=== PATIENT | female | born 1940 | race Caucasian/White ===

== ENCOUNTER 2016-07-03 02:39 | Emergency (ER) | payer MEDICARE ==
[~2016-07-03] VITALS: Ht 167.6 cm; Wt 59.1 kg
[~2016-07-03 02:39] MED LIST: BAYER BACK PO; BODY PO; ERGO400C PO; FISH1200 PO; MVI PO; Turmeric PO; [UNRECOGNIZED DRUG - OTHER]; [UNRECOGNIZED DRUG - OTHER] PO; coQ10; progesterone PO
[2016-07-03 02:46] VITALS: BP 100/64; PULSE 114; RESP 18; O2SAT 99
--- NOTE | 2016-07-03 02:47 | ED.REPORT ---
HPI-Abd Pain F 40 and Over Date of Service Jul 03, 2016 ED Provider: Obed Jiménez MD Pt is a 76 y/o female who presents to the ED complaining of abdominal pain onset 3 days ago with headache, sore throat, cough, nausea, vomiting, diarrhea, and dizziness. Patient has never had influenza vaccination. Nursing Notes Stated Complaint: FLU SYMPTOMS Chief Complaint: Female Abdominal Pain Nursing Notes Reviewed: Yes Allergies: Coded Allergies: Penicillins (Verified Allergy, Severe, rash/hives, 07/03/16) clindamycin (Verified Allergy, Severe, rash/hives, 07/03/16) codeine (Verified Allergy, Severe, rash/hives, 07/03/16) epinephrine (Verified Allergy, Severe, rash/hives, 07/03/16) morphine (Verified Allergy, Severe, rash/hives, 07/03/16) acetaminophen (Verified Allergy, Mild, RASH, 07/03/16) Sulfa (Sulfonamide Antibiotics) (Verified Allergy, Unknown, 07/03/16) Uncoded Allergies: SULFA (Allergy, Severe, rash/hives, 04/17/09) sulfites/nitrates (Allergy, Severe, diarrhea, 03/20/09) Scheduled ([Faith Back/Body]) 500 MG PO PRN ([Turmeric]) 500 MG PO AM ([Stressplex]) PRN ([Tri est comp oils]) 0.25 MG PO AM ([progesterone]) 1 MG PO AM Ergocalciferol-Expunged Drug, Do Not Renew! (Vitamin D-Expunged Drug, Do Not Renew!) 400 Unit Capsule 1,000 UNIT PO AM Fish Oil/Fat No.8/Hrb Comb.137-Expunged, Do N ([place]asper 0-6-9-Expunged, Do Not Renew!) 1,200 Mg Capsule 115 MG PO AM Therapeutic Multivit/Minerals-Expunged Drug, (Therapeutic Multivit/Minerals- Expunged Drug,) 1 Ea Tab 1 TAB PO DAILY Miscellaneous Medications ([coQ10]) General Time Seen by : 02:46 Chief Complaint Abdominal pain, Vomiting mild Hx Obtained From: Patient Arrived By: Walk-in Sudden in Onset?: No Onset Occurred: 3 days ago Symptom Duration: Since onset Progression since Onset: Gradually worsening Location: : Diffuse Quality: Painful Severity: Current: Moderate Severity: Maximum: Moderate Associated with: Reports: Diarrhea, Vomiting Additional Notes: sore throat. Past Medical History Past Surgical History Reports: Hysterectomy Smoking History Former Smoker Social History Alcohol Use: "Social" Drug Use: Denies drug use Other Social History: Good social support, Ambulatory Status Independent Review of Systems Constitutional: Reports: Weakness - generalized, Denies: Chills, Fever Respiratory: Denies: Non-productive cough GI: Reports: Abdominal pain, Diarrhea, Nausea, Vomiting Female: Denies: Urination decreased Complete sys rev & neg: except as marked. Ears / Nose / Throat: Reports: Sore throat Neurologic: Reports: Dizziness, Headache Physical Exam Vital Signs Vital Signs (First) Date Time Temp Pulse Resp B/P Pulse Ox O2 Delivery O2 Flow Rate FiO2 07/03/16 02:46 37.3 114 18 100/64 99 Room Air Initial VS: Reviewed, Vital signs abnormal Extremities: Vascular intact, Neuro intact, No swelling, No tenderness Skin: Warm, Dry, No cyanosis Neurologic: Alert, Oriented, Nonfocal Psychiatric: Mood/affect normal, Behavior normal, Normal thought content General/Constitutional: Awake, Alert, Well developed, Well nourished Appearance / Presentation: Positive: Pale Respiratory / Chest: Atraumatic, Breath sounds NL, Breath sounds = bilat, No respiratory distress Cardiovascular: Heart rate NL, Regular rhythm, Heart sounds NL, Peripheral circulation NL Abdomen: Soft, No guarding, No rebound Tenderness/Guarding/Rebound: Positive: Tender diffuse (mild ) Head / Eyes: Atraumatic, Normocephalic Mouth: Positive: Mucous membranes dry Interpretation & Diagnostics Lab Results Interpretation Result Diagram: 07/03/16 0315 07/03/16 0315 Test 07/03/16 03:15 White Blood Count 6.7th/mm3 (3.8-10.1) Red Blood Count 4.64mil/mm3 (3.90-5.20) Hemoglobin 13.7g/dL (12.0-15.6) Hematocrit 41.2% (35.0-46.0) Mean Corpuscular Volume 88.8fL (81-100) Mean Corpuscular Hemoglobin 29.5pg (27.0-35.0) Mean Corpuscular Hemoglobin Concent 33.3% (32.0-37.0) Red Cell Distribution Width 11.4% (12.3-15.4) Platelet Count 176bil/L (150-400) Neutrophils (%) (Auto) 83.9% (40-74) Lymphocytes (%) (Auto) 9.6% (14-46) Monocytes (%) (Auto) 6.1% (4-12) Eosinophils (%) (Auto) 0% (0-5) Basophils (%) (Auto) 0.3% (0-3) Sodium Level 135mEq/L (134-144) Potassium Level 3.6mEq/L (3.5-5.2) Chloride Level 96mEq/L (97-108) Carbon Dioxide Level 25mmol/L (18-29) Blood Urea Nitrogen 19mg/dL (8-27) Creatinine 0.71mg/dL (0.57-1.00) Estimat Glomerular Filtration Rate 115mL/min (>59) Glucose Level 150mg/dL (60-99) Calcium Level 8.6mg/dL (8.5-10.1) Magnesium Level 2.1mg/dL (1.6-2.6) Total Bilirubin 0.4mg/dL (0.0-1.2) Aspartate Amino Transf (AST/SGOT) 35U/L (0-50) Alanine Aminotransferase (ALT/SGPT) 19U/L (0-32) Alkaline Phosphatase 76U/L (25-165) Total Protein 6.6g/dL (6.4-8.4) Albumin 3.7g/dL (3.4-5.0) Lipase 46U/L (13-60) Hold [place] Top Tube Received (Received) Lab values outside NL range: no clinical significance. Lab Results Interpretation: Influenza A positive Re-Eval/Medical Decision Med Decision/Clinical Course 76-year-old female who is about 3 days into a flulike illness. She is positive for influenza A. She was hydrated and given Zofran. She will be sent home with a Zofran prepack. She was encouraged to have any contacts who are elderly , chronically ill, , or be evaluated by their primary doctors. Re-Evaluation/Progress : Time of Eval: 03:53 Consultation : Note: Diagnosis of influenza A is discussed with patient. Patient understands diagnosis and treatment plan. Counseled Regarding: Diagnosis, Lab results, Need for follow-up, When/why to return to ED Discharge & Departure Primary Impression: Influenza A Disposition: Home Discharge Condition All VS Reviewed: Yes Condition: Stable Patient Instructions: Influenza (ED) Additional Instructions: You have influenza A. You are been sick for a few days so Tamiflu, the antiviral medication, will not be helpful at this point. Stay at home and away from other people until you are well so you do not transmit the illness. Any but he has been exposed to should get the flu shot. Anybody who was exposed to you with chronic illness, , or less than one year of age should talk to their doctor about preventive Tamiflu medication. Ondansetron 4 mg ODT, 1 dissolved orally every 4-6 hours as needed for nausea and vomiting, #4 dispensed. Follow up with your regular doctor as needed for worsening symptoms. A flu shot likely would have prevented this. Referrals: Ritesh Perez MD (PCP) Keila Attestation Portions of this note were transcribed by Juan J Tucker & Anastacio Junior. I, Dr. Jiménez, personally performed the history, physical exam and medical decision-making; I reviewed and confirmed the accuracy of the information in the transcribed note. Signed by:Keila Maloney, 07/03/16 and 04:07. copies to: Ritesh Perez MD, Howard L MD Jul 03, 2016 02:47 Juan J Tucker Jul 03, 2016 03:02 ANASTACIO JUNIOR Jul 03, 2016 04:08
[2016-07-03] MEDS ORDERED: 0.9% Sodium Chloride 1,000 ML IV ONE (02:56)
[2016-07-03] MEDS ORDERED: Ondansetron 2 mg/mL 2 mL Inj IVPUSH PRN (03:00)
[2016-07-03 03:36] LABS: BASOPHILS % (AUTO) 0.3 % (0-3); EOSINOPHILS % (AUTO) 0 % (0-5); MONOCYTES % (AUTO) 6.1 % (4-12); Mean Corpuscular Hemoglobin 29.5 pg (27.0-35.0); Mean Corpuscular Volume 88.8 fL (81-100); NEUTROPHILS % (AUTO) 83.9 % (40-74); Platelet Count 176 bil/L (150-400)
[2016-07-03 03:54] LABS: Magnesium 2.1 mg/dL (1.6-2.6)
[2016-07-03] MEDS ORDERED: _Ondansetron ODT 4 mg Tablet PO PRN (04:00)
[2016-07-03 04:28] VITALS: BP 110/66; PULSE 110; RESP 18; O2SAT 98
== END 2016-07-03 04:29 | disposition home or self-care (01) ==
LOC: SED 02:39
DX: J10.89 Influenza due to other identified influenza virus with other manifestations (principal); R10.84 Generalized abdominal pain; R51 Headache; J02.9 Acute pharyngitis, unspecified; R05 Cough; R11.2 Nausea with vomiting, unspecified; R19.7 Diarrhea, unspecified; R42 Dizziness and giddiness; Z87.891 Personal history of nicotine dependence; Z88.0 Allergy status to penicillin; Z88.1 Allergy status to other antibiotic agents; Z88.5 Allergy status to narcotic agent; Z88.8 Allergy status to other drugs, medicaments and biological substances; Z88.6 Allergy status to analgesic agent; Z88.2 Allergy status to sulfonamides
CPT/HCPCS: 36415; 80053; 83690; 83735; 85025; 87804; 96361; 96374; 99284; J2405; J7030